=== PATIENT | male | born 1955 | race Caucasian/White ===

== ENCOUNTER 2020-10-24 10:45 | Emergency (ER) | payer OTHER ==
[~2020-10-24] VITALS: Ht 170.2 cm; Wt 64.9 kg
[2020-10-24 11:31] LABS: BASOPHILS ABSOLUTE AUTO 0.03 K/mm3 (0.00-0.23); BASOPHILS PERCENT AUTO 0 % (0-2); EOSINOPHILS ABSOLUTE AUTO 0.05 K/mm3 (0.00-0.68); EOSINOPHILS PERCENT AUTO 1 % (0-6); Hematocrit 36.8 % (37.0-53.0); Hemoglobin 12.6 g/dL (13.5-17.5); IMMATURE GRAN ABSOLUTE AUTO 0.04 K/mm3 (0.00-0.10); IMMATURE GRAN PERCENT AUTO 1 % (0-1); LYMPHOCYTES ABSOLUTE AUTO 0.83 K/mm3 (0.84-5.20); LYMPHOCYTES PERCENT AUTO 10 % (21-46); MONOCYTES ABSOLUTE AUTO 0.82 K/mm3 (0.16-1.47); MONOCYTES PERCENT AUTO 10 % (4-13); Mean Corpuscular HGB 34.1 pg (26.0-34.0); Mean Corpuscular HGB Conc 34.2 g/dL (31.5-36.5); Mean Corpuscular Volume 100 fL (80-100); Mean Platelet Volume 11.1 fL (9.1-12.4); NEUTROPHILS PERCENT AUTO 78 % (41-73); Platelet Count 134 K/mm3 (150-400); RDW Coefficient Variation 14.6 % (11.7-14.2); RDW Standard Deviation 53.6 fL (35.1-46.3); White Blood Cell Count 7.97 K/mm3 (4.00-11.30)
[2020-10-24 11:44] LABS: International Normalized Ratio 1.21; Prothrombin Time Results 12.8 Sec (9.7-11.5)
[2020-10-24 11:52] LABS: Alanine Aminotransfer (ALT/SGP 54 U/L (12-78); Albumin, Blood 2.3 g/dL (3.4-5.0); Albumin/Globulin Ratio 0.4 (0.8-1.8); Alk Phos 189 U/L (50-136); Anion Gap 3 mmol/L (6-16); Aspartate Aminotrans (AST/SGOT 341 U/L (12-37); Bilirubin, Total 2.1 mg/dL (0.1-1.0); Blood Urea Nitrogen 14 mg/dL (8-24); Bun/Creatinine Ratio 28.2 (12.0-20.0); CO2, Blood 31 mmol/L (21-32); Calcium, Blood 8.5 mg/dL (8.5-10.1); Chloride, Blood 101 mmol/L (98-108); Globulin, Blood 6.1 g/dL (2.2-4.0); Glomerular Filtration Rate >60 (60-); Glucose, Blood 102 mg/dL (70-99); Potassium, Blood 3.6 mmol/L (3.5-5.5); Sodium, Blood 135 mmol/L (136-145); Total Protein, Blood 8.4 g/dL (6.4-8.2)
[2020-10-24 12:42] LABS: Source, Urine Clean Catch
[2020-10-24 12:48] LABS: Appearance, Urine Hazy (Clear); Bilirubin, Urine Neg (Neg); Blood, Urine Neg (Neg); Color, Urine Amber (P-Yellow); Glucose Qualitative, Urine Neg (Neg); Ketones, Urine 1+ (Neg); Leukocyte Esterase, Urine 1+ (Neg); Nitrite, Urine Pos (Neg); Protein, Urine 1+ (Neg); Urobilinogen, Urine 3+ (Normal)
[2020-10-24 13:37] LABS: Bacteria Few /hpf; Mucus Mod (0-Heavy); Red Blood Cells, Urine 0-2 /hpf (0-2); Squamous Epithelial Cells Rare /hpf (Few)
[2020-10-24] MEDS ORDERED: CEPH500 PO (14:10)
== END 2020-10-24 14:25 | disposition home or self-care (01) ==
LOC: ER 10:45
PROVIDERS: Emergency Medicine; Physician Assistant
DX: K74.60 Unspecified cirrhosis of liver (principal); C22.0 Liver cell carcinoma; N39.0 Urinary tract infection, site not specified; K40.20 Bilateral inguinal hernia, without obstruction or gangrene, not specified as recurrent; I50.9 Heart failure, unspecified; Z87.891 Personal history of nicotine dependence
CPT/HCPCS: 36415; 74177; 76705; 80053; 81001; 82140; 83690; 83880; 85025; 85610; 87086; 99284-25; A9270; Q9967

== ENCOUNTER 2020-11-14 22:25 | Inpatient (IN) | payer OTHER ==
[~2020-11-14] VITALS: Ht 170.2 cm; Wt 71.4 kg
[~2020-11-14 22:25] MED LIST: CEPH500 PO
[2020-11-14 22:58] LABS: BASOPHILS ABSOLUTE AUTO 0.02 K/mm3 (0.00-0.23); BASOPHILS PERCENT AUTO 0 % (0-2); EOSINOPHILS ABSOLUTE AUTO 0.03 K/mm3 (0.00-0.68); EOSINOPHILS PERCENT AUTO 0 % (0-6); Hemoglobin 11.3 g/dL (13.5-17.5); IMMATURE GRAN ABSOLUTE AUTO 0.06 K/mm3 (0.00-0.10); IMMATURE GRAN PERCENT AUTO 1 % (0-1); LYMPHOCYTES ABSOLUTE AUTO 1.13 K/mm3 (0.84-5.20); LYMPHOCYTES PERCENT AUTO 10 % (21-46); MONOCYTES ABSOLUTE AUTO 0.95 K/mm3 (0.16-1.47); MONOCYTES PERCENT AUTO 8 % (4-13); Mean Corpuscular HGB 35.2 pg (26.0-34.0); Mean Corpuscular HGB Conc 35.3 g/dL (31.5-36.5); Mean Corpuscular Volume 100 fL (80-100); Mean Platelet Volume 11.5 fL (9.1-12.4); NEUTROPHILS PERCENT AUTO 81 % (41-73); Platelet Count 148 K/mm3 (150-400); RDW Standard Deviation 61.1 fL (35.1-46.3); Red Blood Cell Count 3.21 M/mm3 (4.30-5.90); White Blood Cell Count 11.29 K/mm3 (4.00-11.30)
[2020-11-14] MEDS ORDERED: FURO20 PO (23:08)
[2020-11-14] MEDS ORDERED: SPIR50 PO (23:08)
[2020-11-14 23:35] LABS: Troponin I <0.015 ng/mL (0.000-0.040)
[2020-11-15 00:08] LABS: Alanine Aminotransfer (ALT/SGP 108 U/L (12-78); Albumin, Blood 1.4 g/dL (3.4-5.0); Albumin/Globulin Ratio 0.2 (0.8-1.8); Alk Phos 262 U/L (50-136); Anion Gap 0 mmol/L (6-16); Aspartate Aminotrans (AST/SGOT 418 U/L (12-37); Bilirubin, Total 3.7 mg/dL (0.1-1.0); Blood Urea Nitrogen 49 mg/dL (8-24); Bun/Creatinine Ratio 88.3 (12.0-20.0); CO2, Blood 30 mmol/L (21-32); Calcium, Blood 8.1 mg/dL (8.5-10.1); Chloride, Blood 97 mmol/L (98-108); Creatinine, Blood 0.56 mg/dL (0.60-1.20); Globulin, Blood 7.2 g/dL (2.2-4.0); Glomerular Filtration Rate >60 (60-); Glucose, Blood 122 mg/dL (70-99); Lactate Dehydrogenase (Ld),Bld 479 U/L (100-240); Sodium, Blood 127 mmol/L (136-145); Total Protein, Blood 8.6 g/dL (6.4-8.2)
[2020-11-15 00:22] LABS: International Normalized Ratio 1.35; Prothrombin Time Results 14.2 Sec (9.7-11.5)
[2020-11-15 02:09] LABS: BASOPHILS PERCENT AUTO 0 % (0-2); EOSINOPHILS ABSOLUTE AUTO 0.05 K/mm3 (0.00-0.68); EOSINOPHILS PERCENT AUTO 1 % (0-6); Hematocrit 29.3 % (37.0-53.0); Hemoglobin 10.6 g/dL (13.5-17.5); IMMATURE GRAN ABSOLUTE AUTO 0.04 K/mm3 (0.00-0.10); IMMATURE GRAN PERCENT AUTO 0 % (0-1); LYMPHOCYTES ABSOLUTE AUTO 0.95 K/mm3 (0.84-5.20); LYMPHOCYTES PERCENT AUTO 9 % (21-46); MONOCYTES ABSOLUTE AUTO 0.97 K/mm3 (0.16-1.47); MONOCYTES PERCENT AUTO 10 % (4-13); Mean Corpuscular HGB 35.5 pg (26.0-34.0); Mean Corpuscular HGB Conc 36.2 g/dL (31.5-36.5); Mean Corpuscular Volume 98 fL (80-100); Mean Platelet Volume 11.2 fL (9.1-12.4); NEUTROPHILS ABSOLUTE AUTO 8.07 K/mm3 (1.96-9.15); NEUTROPHILS PERCENT AUTO 80 % (41-73); Platelet Count 124 K/mm3 (150-400); RDW Coefficient Variation 16.8 % (11.7-14.2); RDW Standard Deviation 59.7 fL (35.1-46.3); Red Blood Cell Count 2.99 M/mm3 (4.30-5.90); White Blood Cell Count 10.08 K/mm3 (4.00-11.30)
[2020-11-15 02:29] LABS: Alanine Aminotransfer (ALT/SGP 99 U/L (12-78); Albumin, Blood 1.5 g/dL (3.4-5.0); Albumin/Globulin Ratio 0.2 (0.8-1.8); Alk Phos 257 U/L (50-136); Anion Gap 6 mmol/L (6-16); Aspartate Aminotrans (AST/SGOT 373 U/L (12-37); Bilirubin, Total 3.4 mg/dL (0.1-1.0); Blood Urea Nitrogen 49 mg/dL (8-24); Bun/Creatinine Ratio 74.2 (12.0-20.0); CO2, Blood 28 mmol/L (21-32); Calcium, Blood 8.1 mg/dL (8.5-10.1); Chloride, Blood 99 mmol/L (98-108); Creatinine, Blood 0.66 mg/dL (0.60-1.20); Glomerular Filtration Rate >60 (60-); Glucose, Blood 128 mg/dL (70-99); Potassium, Blood 4.4 mmol/L (3.5-5.5); Sodium, Blood 133 mmol/L (136-145); Total Protein, Blood 7.5 g/dL (6.4-8.2)
--- NOTE | 2020-11-15 05:07 | NUR ---
SHIFT SUMMARY PT WAS NEW ADMIT IN NIGHT. ACCOMPANIED BY DAUGHTER, ADMISSION COMPLETE. PT ALERT AND ORIENTED WITH INTERMITTENT CONFUSION. ABLE TO MAKE NEEDS KNOWN. SATS >90% ON ROOM AIR. TELE NSR. NO C/O CHEST PAIN. CONTINENT OF BOWEL AND BLADDER. ABDOMEN IS VERY DISTENDED - PT C/O UNCOMFORTABILITY, BUT NO PAIN. MRI SCREENING FORM COMPLETED PER DAUGHTER AT BEDSIDE. PLANNING FOR MRI AND PARACENTESIS IN AM. EDUCATION PROVIDED. VSS. CALL LIGHT WITHIN REACH, BED IN LOWEST POSITION. BED ALARM ON. WILL CONTINUE TO MONITOR.
--- NOTE | 2020-11-15 08:00 | NUR ---
pt laying in bed awake a/ox3, pleasant and cooperative with care, follows commands well, reports a feeling of pressure and some pain from that in his abd, lungs are clear t/o, on r/a, sats in the high 90's, hrr, tele in place running sr per monitor, see strip, 3+pitting edema noted to b/l le, up to knees, iv site to rac site is clear and patent, bt not auscultated, abd very distended and firm, voids without diff, skin c/w/d, maew, is fatigued, pt looks underweight, adrian, will be having a parcentesis today, and an mri. call light in reach.
[2020-11-15 11:48] LABS: Automated BF RBC Count 0.173 M/mm3 (0-0); Automated BF WBC Count 0.308 K/mm3 (0-999); Body Fluid WBC Count 308 /mm3 (0-999); RBC Count, Body Fluid 173000 /mm3 (0-0)
[2020-11-15 11:52] LABS: Albumin, Body Fluid 0.2 g/dL
[2020-11-15 12:05] LABS: Protein, Body Fluid 0.7 g/dL
[2020-11-15 12:08] LABS: Lactate Dehydrogenase, Body Fl 67 U/L
--- NOTE | 2020-11-15 12:12 | NUR ---
pt returned from para and mri, is tired, v.s. stable, wants to eat in a bit, and reports he feels relief. call light in reach, albumin infusing as ordered.
[2020-11-15 12:39] LABS: Appearance, Body Fluid Bloody (Clear); Color, Body Fluid Red (None-Yellow); Total Cell Count, Body Fluid 100
--- NOTE | 2020-11-15 16:12 | NUR ---
New palliative care consult: Paulo is a 65 year old with a history of hepatic encephalopathy, liver failure x 1 month. He has had limited medical care recently. He had a consult with Dr. Mario this afternoon and Dr. Mario's note was reviewed. Dr. Mario is recommending hospice at this time. Paulo is alone in his room during the consult. His visit with Dr. Mario was a couple hours ago. He reports that the news from Dr. Mario was shocking, but not unexpected. He was hoping for some treatment options, however he states that Dr. Mario tells him that there are no treatment options for him due to his advanced liver failure. He mentions to this radio news writer that Dr. Mario recommended hospice. Paulo reports he lives alone. He is cachectic and has lost weight recently. He is jaundiced and weak. He has a dtr, Oma, and son, Julio, who live locally. He has another son who lives out of the area. He has several grandchildren who are local as well. Paulo states that he is considering hospice as an option. He reports that his mother had hospice services at the end of her life. That is the only experience he has had with hospice. Paulo states he has not had a chance to speak with his children yet. He requests that this radio news writer contact his dtr, Oma, to fill her in on what's going on. He states "I have no secrets from her." He gave this radio news writer permission to fill Khris in on Dr. Mario's recommendation of hospice for his liver cancer. Informed Paulo that he will need to make some decisions about his future care needs over the next couple of days. Encouraged him to make those decisions with assistance from his children if that is what he would like to do. Spoke with Oma who is at work. Updated her on her dad's diagnosis of liver cancer and Dr. Mario's recommendation of hospice. Khris had to quickly get off the phone, due to her work, however she states she will call this radio news writer right back. Rec'd a call from [facility] chargemaster specialist. Pt's son is here at the bedside and would like to speak with PC RN. Will go meet with pt and his son.
--- NOTE | 2020-11-15 17:07 | NUR ---
Son, Julio, came to visit pt. He requested to speak with PC RN. Updated Paulo on diagnosis and Dr. Mario's recommendation for hospice services. Julio states he will be in contact with his siblings and call PC office tomorrow to arrange a time to discuss plan of care going forward, code status and to provide information on hospice services. Spoke to Oma again after Julio left and updated her on plan. She will talk with her siblings and they will arrange a time to come into the hospital tomorrow to meet with their dad and PC RN.
--- NOTE | 2020-11-15 17:43 | NUR ---
pt sitting up for dinner, is doing ok, Dr. Mario in to see him, informed him that there is no tx for his situation. Pallative care was called, and spoke to him and family. will have family meeting tomorrow. no further changes with pt. call light in reach.
[2020-11-16 04:39] LABS: BASOPHILS ABSOLUTE AUTO 0.01 K/mm3 (0.00-0.23); BASOPHILS PERCENT AUTO 0 % (0-2); EOSINOPHILS ABSOLUTE AUTO 0.05 K/mm3 (0.00-0.68); EOSINOPHILS PERCENT AUTO 1 % (0-6); Hematocrit 29.4 % (37.0-53.0); Hemoglobin 10.2 g/dL (13.5-17.5); IMMATURE GRAN ABSOLUTE AUTO 0.03 K/mm3 (0.00-0.10); IMMATURE GRAN PERCENT AUTO 0 % (0-1); LYMPHOCYTES ABSOLUTE AUTO 0.89 K/mm3 (0.84-5.20); LYMPHOCYTES PERCENT AUTO 10 % (21-46); MONOCYTES ABSOLUTE AUTO 0.87 K/mm3 (0.16-1.47); MONOCYTES PERCENT AUTO 10 % (4-13); Mean Corpuscular HGB Conc 34.7 g/dL (31.5-36.5); Mean Corpuscular Volume 98 fL (80-100); Mean Platelet Volume 11.1 fL (9.1-12.4); NEUTROPHILS ABSOLUTE AUTO 7.29 K/mm3 (1.96-9.15); NEUTROPHILS PERCENT AUTO 80 % (41-73); Platelet Count 118 K/mm3 (150-400); RDW Coefficient Variation 17.2 % (11.7-14.2); RDW Standard Deviation 60.6 fL (35.1-46.3); White Blood Cell Count 9.14 K/mm3 (4.00-11.30)
--- NOTE | 2020-11-16 05:07 | NUR ---
SHIFT SUMMARY PT RESTED WELL THROUGH THE NIGHT. ALERT AND ORIENTED - ABLE TO MAKE NEEDS KNOWN. PT APPEARS TO BE FRUSTRATED AND AGITATED EASILY. SATS >90% ON ROOM AIR. TELE NSR. PT IS VERY UNSTEADY ON FEET - NEEDS 1-2 PERSON ASSIST WITH WALKER TO USE RESTROOM, PT DOES NOT WANT TO USE COMMODE AT BEDSDIE. 2 LOOSE BOWEL MOVEMENTS AND A FEW UNMEASURED URINE OUTPUTS. NO C/O PAIN, BUT SOME UNCOMFORTABILITY IN ABDOMEN. VSS. CALL LIGHT WITHIN REACH, BED IN LOWEST POSITION. WILL CONTINUE TO MONITOR. BED ALARM ON.
[2020-11-16 05:10] LABS: Alanine Aminotransfer (ALT/SGP 85 U/L (12-78); Albumin, Blood 1.8 g/dL (3.4-5.0); Albumin/Globulin Ratio 0.3 (0.8-1.8); Alk Phos 249 U/L (50-136); Anion Gap 7 mmol/L (6-16); Aspartate Aminotrans (AST/SGOT 281 U/L (12-37); Bilirubin, Total 3.5 mg/dL (0.1-1.0); Blood Urea Nitrogen 40 mg/dL (8-24); Bun/Creatinine Ratio 60.5 (12.0-20.0); CO2, Blood 28 mmol/L (21-32); Calcium, Blood 8.3 mg/dL (8.5-10.1); Chloride, Blood 102 mmol/L (98-108); Creatinine, Blood 0.66 mg/dL (0.60-1.20); Globulin, Blood 5.6 g/dL (2.2-4.0); Glomerular Filtration Rate >60 (60-); Glucose, Blood 92 mg/dL (70-99); Phosphorus, Blood 3.3 mg/dL (2.5-4.9); Potassium, Blood 4.1 mmol/L (3.5-5.5); Sodium, Blood 137 mmol/L (136-145); Total Protein, Blood 7.4 g/dL (6.4-8.2)
[2020-11-16 05:46] LABS: Influenza A, PCR NEGATIVE (NEGATIVE); Influenza B, PCR NEGATIVE (NEGATIVE); Resp Syncytial Virus, PCR NEGATIVE (NEGATIVE); SARS-Cov-2 (COVID-19) PCR, MMC NEGATIVE (NEGATIVE)
--- NOTE | 2020-11-16 08:00 | NUR ---
PT LAYING IN BED EATING HIS BREAKFAST, HE IS A/X3, FORGETFUL AT TIMES, FLAT AFFECT, LUNGS ARE CLEAR T/O, DIM IN BASES, RESP EVEN AND UNLABORED, ON R/A, HRR, TELE IN PLACE RUNNING SR PER MONITOR, SEE STRIP, 4+ PITTING EDEMA NOTED TO B/L LE, UP TO KNEES, WITH SCUDS IN PLACE, IV SITE TO RAC IS CLEAR AND PATENT, BT NOT AUSCULTATED, ABD IS VERY DISTENDED AND FIRM, VOIDS VIA BATHROOM OR URINAL, SKIN IS C/W/D, ZAINA, ASKED PT TO USE A BSC, HE WAS DETERMINED TO GO INTO THE BATHROOM, EVEN THOUGH WAS STRONGLY ENCOURAGED TO USE BSC, CALL LIGHT IN REACH.
--- NOTE | 2020-11-16 10:39 | NUR ---
Pt grieving today and wanting to go home. He wants hospice care and to be home. Notified children and we are meeting today at 4pm, advised physician ketty notifed and he did not have a preference of [facility] to see they have an opening.
--- NOTE | 2020-11-16 17:56 | NUR ---
PATIENT TRANSFERRED FROM [facility] TO ROOM 355. REPORT RECEIVED FROM HUNTER HARDY PATIENT ORIENTED TO ROOM AND USE OF CALL LIGHT. FAMILY MEETING WITH PALLIATIVE CARE NURSE. PATIENT DENIES ANY PAIN AT THIS TIME. VSS TODAY, ON RA. FALL PRECAUTIONS IN PLACE. DENIES ANY NEEDS AT THIS TIME. CALL LIGHT WITHIN REACH.
--- NOTE | 2020-11-16 18:00 | NUR ---
PT HAS BEEN TRANSFERED TO MEDICAL FLOOR VIA BED, WITH SYSTEMS ANALYST DEVELOPER IN ATTENDENCE, FAMILY HERE TO HAVE A MEETING ABOUT PLANS FOR PT WITH PALLATIVE CARE. REPORT WAS GIVEN TO RECIEVING NURSE, ALL BELONGINGS SENT WITH PT.
--- NOTE | 2020-11-16 19:46 | NUR ---
ASSUMPTION OF CARE. PATT BED ALARM WAS SOUNDING. WAS SITTING ON SIDE OF BED BUT NEEDED TO GO TO THE BATHROOM. ASSISTED TO BATHROOM, SLIGHTLY WEAK BUT DID WELL WALKING. STATES HE IS IN PAIN AND HAS BEEN FOR A LONG TIME. ALSO STATED THAT HE HAS NOT USED PAIN MEDS THE ENTIRE TIME HE HAS BEEN HERE AND DOES NOT PLAN TO. DENIES NAUSEA. ABDOMIN VERY DISTENDED, FIRM. HE IS SKIN AND BONE OTHER THEN HIS ABDOMIN DISTENSION. BT HYPERACTIVE. SKIN IS DUSKY, NO BREAKDOWN. EDEMA TO BLE UP TO KNEE. CHANGED SOCKS TO DIABETIC SOCKS. DENIES ANY NEEDS. CALL LIGHT IS IN REACH, BED ALARM ON.
--- NOTE | 2020-11-17 05:45 | NUR ---
SHIFT SUMMARY: AOX3 WITH PERIODS OF CONFUSION THROUGHOUT THE NIGHT. WEAK AND FRAILE APPEARING. SEVERE ABDOMINAL DISTENTION, FIRM, BT ACTIVE. NO NAUSEA THIS SHIFT. STATES ALWAYS IN PAIN BUT DENIES NEED FOR PAIN. WAS PLEASANT THIS SHIFT BUT PERFERED TO BE LEFT ALONE. VS WNL, DID NOT DUE AM DUE TO PATIENT WANTING TO REST. SKIN IS DUSKY COLOR. SLEPT WELL T/O NIGHT EXCEPT TO GET UP TO THE BATHROOM. NO ACUTE CHANGES THIS SHIFT. PLAN IS FOR COMFORT CARE. MEDICATION FOR COMFORT CARE IS ORDERED BUT NO ORDER FOR COMFORT CARE. WILL NEED ORDER TODAY. BED ALARM ON, CALL LIGHT IN REACH.
--- NOTE | 2020-11-17 12:07 | NUR ---
11/17/20 1207 Fara Sánchez PT ON SCHEDULED ANTIBIOTICS, NO PAS STOCKINGS NEEDED [place]. DR DURAN
[2020-11-17] MEDS ORDERED: ONDA4ODT MM (14:24)
[2020-11-17] MEDS ORDERED: MORP20L (14:27)
[2020-11-17] MEDS ORDERED: Ativan1 MG PO (14:28)
--- NOTE | 2020-11-17 15:36 | NUR ---
PT DISCHARGED AOX4 AND COOPERATIVE OF CARE. PT GOING HOME WITH FAMILY ON HOSPICE. PT HAS REPORTED TOLERABLE PAIN AND REFUSED PAIN MEDICATIONS. PT HAD PLEURX DRAIN PLACED AND STATED HE FELT MORE COMFORTABLE. CAMERON DID EDUCATION ON USING THE PLEURX DRAIN WITH FAMILY MEMBER. ALL PERSONAL BELONGINGS COLLECTED AND PT HAD PAPERWORK REVIEWED AND SIGNED. EDUCAITONAL MATERIAL SENT WITH PT. PT ESCORTED OUT VIA WHEEL CHAIR TO N ENTRANCE BY THIS ON AIR TALENT. NO DISTRESS NOTED.
== END 2020-11-17 15:32 | disposition hospice, home (50) | DRG 441 ==
LOC: ER 22:25 → PCU 23:57 → MEDS 11-15 00:39 → ER 11-15 00:39 → PCU 11-15 01:16 → MEDS 11-16 17:43 → PCU 11-16 17:43 → MEDS 11-17 15:32
PROVIDERS: Emergency Medicine; Family Medicine; Nurse Practitioner Acute Care; ADMIT Internal Medicine
PROC: 0W9G3ZZ Drainage of Peritoneal Cavity, Percutaneous Approach (ICD-10-PCS; principal; 2020-11-15)
PROC: 0W9G30Z Drainage of Peritoneal Cavity with Drainage Device, Percutaneous Approach (ICD-10-PCS; 2020-11-17)
DX: K72.00 Acute and subacute hepatic failure without coma (principal); E43 Unspecified severe protein-calorie malnutrition; C22.0 Liver cell carcinoma; E87.1 Hypo-osmolality and hyponatremia; R18.0 Malignant ascites; R65.10 Systemic inflammatory response syndrome (SIRS) of non-infectious origin without acute organ dysfunction; K74.60 Unspecified cirrhosis of liver; Z20.822 Contact with and (suspected) exposure to COVID-19; Z66 Do not resuscitate; Z68.24 Body mass index [BMI] 24.0-24.9, adult; Z51.5 Encounter for palliative care; E78.1 Pure hyperglyceridemia; D63.8 Anemia in other chronic diseases classified elsewhere; D69.59 Other secondary thrombocytopenia; Z87.891 Personal history of nicotine dependence; Z79.899 Other long term (current) drug therapy
CPT/HCPCS: 0241U; 36415; 49083; 74183; 80053; 82042; 82140; 83605; 83615; 83690; 84100; 84157; 84484; 85025; 85610; 85730; 87070; 87205; 88108; 88305; 89051; 93005; 93010; 97110; 97162; 99285-25; A9270; A9581; C1729; J0696; P9046